=== PATIENT | male | born 1985 | race Caucasian/White ===

== ENCOUNTER 2021-07-12 19:10 | Emergency (ER) | payer BC, OTHER ==
[2021-07-12] MEDS ORDERED: Bacitracin Oint 1 GM U/D Packet TOP ONE (21:01)
[2021-07-12] MEDS ORDERED: Diphtheria,Pertussis(Acell),Tetanus Vaccine 0.5 ML Syringe IM ONE (21:01)
--- NOTE | 2021-07-12 21:11 | EDM.PDOC ---
ED HPI GENERAL MEDICAL PROBLEM - General Chief Complaint: Laceration Stated Complaint: LACERATION ON HAND Time Seen by Provider: 07/12/21 20:17 - History of Present Illness INITIAL COMMENTS - FREE TEXT/NARRATIVE: HISTORY AND PHYSICAL: History of present illness: There is a 35-year-old gentleman who presents ER today from work secondary to an injury to his left hand. Patient reports he was utilizing a rodeo and rotor came off and sliced him over the knuckle of his second third and fourth digits of his left hand. Patient reports his tetanus status is slightly greater than 5 years. Patient has any recent fevers, shakes, chills, nausea, vomiting, diarrhea, seizure, frequency, urgency, chest pain, shortness of breath. Patient reports no loss of function of his fingers after the injury. Patient ports bleeding has been controlled with pressure. Review of systems: As per history of present illness and below otherwise all systems reviewed and negative. Past medical history: As per history of present illness and as reviewed below otherwise noncontributory. Surgical history: As per history of present illness and as reviewed below otherwise noncontributory. Social history: No reported history of drug abuse. Family history: As per history of present illness and as reviewed below otherwise noncontributory. Physical exam: HEENT: Atraumatic, normocephalic, pupils reactive, negative for conjunctival pallor or scleral icterus, mucous membranes moist, throat clear, neck supple, This patient was seen and evaluated during the 2019 SARS-CoV-2 novel coronavirus pandemic period. Community viral transmission is ongoing at time of this encounter and the emergency department is operating under pandemic response procedures. Constitutional: Patient is oriented to person, place, and time. Appears well-developed and well-nourished. No distress. HEENT: Moist mucous membranes Head: Normocephalic and atraumatic Eyes: Right eye exhibits no discharge. Left eye exhibits no discharge. No scleral icterus Neck: Normal range of motion. No tracheal deviation present. Cardiovascular: Normal rate and regular rhythm. Pulmonary: Effort normal, no respiratory distress. Abdominal: No distention Musculoskeletal: Normal range of motion Neurologic: Alert and oriented to person, place and time. Skin: [place], warm and dry. Psychiatric: Normal mood and affect. Behavior is normal. Judgment and thought content normal. Nursing note and vital signs have been reviewed Patient's ER physical exam is significant for a 5 cm laceration to the MCP joints over the second third and fourth digits of his left hand. Patient is neurovascular intact. Patient is full flexion extension of all his digits of his left hand. All digits were tested together as well as in isolation. After wound was anesthetized and irrigated the wound was evaluated and examined in a bloodless field and there was no evidence of any tendon or ligament injury. Wound was irrigated with 1 L of NSS high-pressure by Dr. Rodriguez. Wound was anesthetized with 6 cc of 1% lidocaine by Dr. Rodriguez prior to irrigation and suturing. Diagnostics: [] Therapeutics: [] Assessment and plan: 35-year-old gentleman who presents ER today secondary to a laceration to his left hand which was sutured in the ED. Patient is neurovascular intact. Patient has good flexion/extension of all digits. Wound was irrigated and a size and sutured. No evidence of any tendon or ligament injury. Patient has no point bony tenderness. Patient will be discharged home with instructions for wound check in 2 days and suture removal in 10 days. Patient is to apply Neosporin to the area and to return the ER if any signs of infection. I have discussed with the patient that despite irrigation there is always a possibility for infection and to return immediately to the ER or to his primary care physician if there is any concerns at all. Reassessment at the time of disposition demonstrates that the patient is in no acute distress. The patient has remained stable throughout the entire ED visit and is without objective evidence for acute process requiring urgent intervention or hospitalization. The patient is stable for discharge, counseling is provided as documented above, discussed symptomatic treatment and specific conditions for return. I have spoken with the patient/caregiver and discussed todays findings, in addition to providing specific details for the plan of care. Questions are answered and there is agreement with the plan. Definitive disposition and diagnosis as appropriate pending reevaluation and review of above. Left Hand Pain Score (Numeric/FACES): 4 - Related Data Allergies Allergy/AdvReac Type Severity Reaction Status Date / Time No Known Allergies Allergy Verified 07/12/21 20:26 Home Meds: Home Meds . [No Known Home Meds] 07/12/21 [History] Past Medical History - Past Health History Medical/Surgical History: Denies Medical/Surgical History Social & Family History - Tobacco Use Tobacco Use Status *Q: Never Tobacco User Second Hand Smoke Exposure: No - Recreational Drug Use Recreational Drug Use: No ED ROS GENERAL - Review of Systems Review Of Systems: See Below ED EXAM, SKIN/RASH Exam: See Below ED SKIN PROCEDURES - Laceration/Wound Repair Left Hand Appearance: Subcutaneous, Irregular, Clean Distal NVT: Neuro & Vascular Intact, No Tendon Injury Anesthetic Type: Local Local Anesthesia - Lidocaine (Xylocaine): 1% Plain Local Anesthetic Volume: 4cc Skin Prep: Saline, Sterile Drape Saline Irrigation (cc's): 1,000 Exploration/Debridement/Repair: Wound Explored, In a Bloodless Field, Explored to Base, No Foreign Material Found, Wound Margins Revised, Multiple Flaps Aligned Closed with: Sutures Lac/Wound length In cm: 5 Suture Size: 4-0 # of Sutures: 9 Suture Type: Nylon, Interrupted, Simple Drain Placement: No Sterile Dressing Applied: Nurse Tetanus Status Addressed: Yes Complications: No Course - Vital Signs Last Recorded V/S: Last Vital Signs Temp 97.3 F 07/12/21 20:13 Pulse 89 07/12/21 20:13 Resp 16 07/12/21 20:13 BP 129/60 07/12/21 20:13 Pulse Ox 98 07/12/21 20:13 - Orders/Labs/Meds Orders: Active Orders 24 hr Category Date Time Status Vaccine to be Administered/Admin Charge [RC] ASDIRECTED Care 07/12/21 21:01 Ordered Meds: Medications Discontinued Medications Generic Name Dose Route Start Last Admin Trade Name Freq PRN Reason Stop Dose Admin Bacitracin 1 dose 07/12/21 21:01 Bacitracin Oint 1 Gm U/D Packet TOP 07/12/21 21:02 ONETIME ONE Diphtheria/Tetanus/Acell Pertussis 0.5 ml 07/12/21 21:01 Diphtheria,Pertussis(Acell),Tetanus Vaccine 0.5 Ml Syringe IM 07/12/21 21:02 .ONCE ONE Lidocaine HCl Confirm 07/12/21 20:21 Lidocaine 1% 5 Ml Sdv Administered 07/12/21 20:22 Dose 10 ml .ROUTE .STK-MED ONE Departure - Departure Time of Disposition: 21:09 Disposition: Home, Self-Care 01 Condition: Good Clinical Impression: Laceration of hand, left Qualifiers: Encounter type: initial encounter Foreign body presence: without foreign body Qualified Code(s): S61.412A - Laceration without foreign body of left hand, initial encounter - Discharge Information Instructions: Laceration Care, Adult Referrals: Sotero Rosales MD [Primary Care Provider] - Additional Instructions: You were seen and evaluated in ER today secondary to a laceration to your left hand. This was sutured in the ER with 9 sutures. Please make an appointment to see your Workmen's Comp. comp doctor in 2 days for wound check and suture removal in 10 days. Please return to the ED sooner if you start developing any signs or symptoms to be at all concerning for any infection. [facility] [address] [place] [id number] The following information is given to patients seen in the emergency department who are being discharged to home. This information is to outline your options for follow-up care. We provide all patients seen in our emergency department with a follow-up referral. The need for follow-up, as well as the timing and circumstances, are variable depending upon the specifics of your emergency department visit. If you don't have a primary care physician on staff, we will provide you with a referral. We always advise you to contact your personal physician following an emergency department visit to inform them of the circumstance of the visit and for follow-up with them and/or the need for any referrals to a consulting specialist. The emergency department will also refer you to a specialist when appropriate. This referral assures that you have the opportunity for follow-up care with a specialist. All of these measure are taken in an effort to provide you with optimal care, which includes your follow-up. Under all circumstances we always encourage you to contact your private physician who remains a resource for coordinating your care. When calling for follow-up care, please make the office aware that this follow-up is from your recent emergency room visit. If for any reason you are refused follow-up, please contact the [facility] Emergency Department at and asked to speak to the emergency department charge nurse. [facility] - [facility] [address] [place] [address] [facility] [address] [place] [address] Sepsis Event Note (ED) - Evaluation Sepsis Screening Result: No Definite Risk - Focused Exam Vital Signs: Vital Signs Temp Pulse Resp BP Pulse Ox 07/12/21 20:13 97.3 F 89 16 129/60 98 - My Orders Last 24 Hours: My Active Orders 07/12/21 21:01 Vaccine to be Administered/Admin Charge [RC] ASDIRECTED - Assessment/Plan Last 24 Hours: My Active Orders 07/12/21 21:01 Vaccine to be Administered/Admin Charge [RC] ASDIRECTED
== END 2021-07-12 21:40 | disposition home or self-care (01) ==
LOC: MW.ED 19:10
DX: S61.412A Laceration without foreign body of left hand, initial encounter (principal); Z23 Encounter for immunization; W26.9XXA Contact with unspecified sharp object(s), initial encounter
CPT/HCPCS: 12002; 90471; 90715; 99282-25